=== PATIENT | female | born 1985 | race Caucasian/White ===

== ENCOUNTER 2018-11-11 13:41 | Emergency (ER) | payer SELFPAY ==
[2018-11-11] MEDS ORDERED: Ketorolac 60 MG/2 ML SDV IM ONE (13:57)
--- NOTE | 2018-11-11 13:57 | EDM.PDOC ---
ED HPI GENERAL MEDICAL PROBLEM - General Chief Complaint: Lower Extremity Injury/Pain Stated Complaint: HURT Rt Hip Time Seen by Provider: 11/11/18 13:44 Source of Information: Reports: Patient History Limitations: Reports: No Limitations - History of Present Illness INITIAL COMMENTS - FREE TEXT/NARRATIVE: HISTORY AND PHYSICAL: History of present illness: Patient is a 33-year-old female presents to the ED today with concern of right hip pain that occurred just prior to arrival to the ED. Patient states she was walking when she felt a click in her right hip and since then has had 10 out of 10 pain. Patient denies any falls or direct injury to the hip. Patient states the pain is worse when she tries to lift the leg up but does not hurt if she tries to move the legs side to side. Patient denies any prior injury to the hip. Patient states she has a history of hysterectomy. Patient denies fever, chills, chest pain, shortness of breath, or cough. Denies headache, neck stiff ness, change in vision, syncope, or near syncope. Denies nausea, vomiting, abdominal pain, diarrhea, constipation, or dysuria. Has not noted any blood in urine or stool. Patient has been eating and drinking appropriately. Review of systems: As per history of present illness and below otherwise all systems reviewed and negative. Past medical history: As per history of present illness and as reviewed below otherwise noncontributory. Surgical history: As per history of present illness and as reviewed below otherwise noncontributory. Social history: See social history for further information Family history: As per history of present illness and as reviewed below otherwise noncontributory. Physical exam: General: Patient is alert, oriented, and in no acute distress. Patient laying comfortably on exam table. HEENT: Atraumatic, normocephalic, pupils equal and reactive bilaterally, negative for conjunctival pallor or scleral icterus, mucous membranes moist, TMs normal bilaterally, throat clear, neck supple, nontender, trachea midline. No drooling or trismus noted. No meningeal signs. No hot potato voice noted. Lungs: Clear to auscultation, breath sounds equal bilaterally, chest nontender. Heart: S1S2, regular rate and rhythm without overt murmur Abdomen: Soft, nondistended, nontender. Negative for masses or hepatosplenomegaly. Negative for costovertebral tenderness. Pelvis: Stable nontender. Genitourinary: Deferred. Rectal: Deferred. Skin: Intact, warm, dry. No lesions or rashes noted. Extremities: Atraumatic, negative for cords or calf pain. Neurovascular unremarkable. No obvious deformity of bilateral lower extremities. Patient has full range of motion of right digits, ankle, and knee without pain or difficulty. Patient does have limited range of motion of the right hip due to pain. Patient does have point tenderness over the greater trochanter. No erythema or edema of the right hip. Dorsalis pedis and posterior tibial pulses are grossly intact of the right lower chin with capillary refill less than 2 seconds. Neuro: Awake, alert, oriented. Cranial nerves II through XII unremarkable. Cerebellum unremarkable. Motor and sensory unremarkable throughout. Exam nonfocal. Notes: Discussed the importance for follow-up with an orthopedic provider. Voices understanding and is agreeable to plan of care. Denies any further questions or concerns at this time. Diagnostics: Hip with pelvic XR, UA Therapeutics: Toradol, Norflex Prescription: Diclofenac, Flexeril Impression: Right hip pain Plan: 1. Rest, ice, elevate the affected extremity. You can apply ice 15 minutes on, 15 minutes off. 2. Tylenol as directed for pain management or discomfort. Take medication as prescribed. 3. Follow up with the Orthopedic provider or primary care provider as discussed. Return to the ED as needed and as discussed. Definitive disposition and diagnosis as appropriate pending reevaluation and review of above. right inguinal area Pain Score (Numeric/FACES): 8 - Related Data Allergies Allergy/AdvReac Type Severity Reaction Status Date / Time amoxicillin Allergy Rash Verified 11/11/18 14:10 hydromorphone [From Dilaudid] Allergy Nausea and Verified 11/11/18 14:10 Vomiting Home Meds: Home Meds B12/Levomefolate Calcium/B-6 [Folbic Rf Tablet] 11/11/18 [History] Cyclobenzaprine [Flexeril] 10 mg PO TID PRN #9 tab 11/11/18 [Rx] Diclofenac Sodium [Voltaren] 75 mg PO BIDMEALS PRN #15 tab.cr 11/11/18 [Rx] Multivitamin [Multi-Vitamin Daily] 11/11/18 [History] Review of Systems - Review of Systems Review Of Systems: ROS reveals no pertinent complaints other than HPI. ED EXAM, GENERAL - Physical Exam Exam: See Below (See dictation) Course - Vital Signs Last Recorded V/S: Last Vital Signs Temp 97.7 F 11/11/18 14:10 Pulse 52 L 11/11/18 15:00 Resp 20 11/11/18 15:00 BP 122/69 11/11/18 15:00 Pulse Ox 98 11/11/18 15:00 - Orders/Labs/Meds Labs: Laboratory Tests 11/11/18 Range/Units 15:15 Urine Color YELLOW Urine Appearance CLEAR Urine pH 7.0 (5.0-8.0) Ur Specific [place] 1.010 (1.001-1.035) Urine Protein NEGATIVE (NEGATIVE) mg/dL Urine Glucose (UA) NEGATIVE (NEGATIVE) mg/dL Urine Ketones NEGATIVE (NEGATIVE) mg/dL Urine Occult Blood NEGATIVE (NEGATIVE) Urine Nitrite NEGATIVE (NEGATIVE) Urine Bilirubin NEGATIVE (NEGATIVE) Urine Urobilinogen 0.2 (<2.0) EU/dL Ur Leukocyte Esterase NEGATIVE (NEGATIVE) Meds: Medications Discontinued Medications Generic Name Dose Route Start Last Admin Trade Name Freq PRN Reason Stop Dose Admin Ketorolac Tromethamine 60 mg 11/11/18 13:57 11/11/18 14:24 Toradol IM 11/11/18 13:58 60 mg ONETIME ONE Administration Orphenadrine Citrate 60 mg 11/11/18 13:57 11/11/18 14:25 Norflex IM 11/11/18 13:58 60 mg NOW STA Administration Departure - Departure Time of Disposition: 15:23 Disposition: Home, Self-Care 01 Clinical Impression: Right hip pain - Discharge Information Prescriptions: Cyclobenzaprine [Flexeril] 10 mg PO TID PRN #9 tab PRN Reason: Pain Diclofenac Sodium [Voltaren] 75 mg PO BIDMEALS PRN #15 tab.cr PRN Reason: Pain Forms: ED Department Discharge Additional Instructions: The following information is given to patients seen in the emergency department who are being discharged to home. This information is to outline your options for follow-up care. We provide all patients seen in our emergency department with a follow-up referral. The need for follow-up, as well as the timing and circumstances, are variable depending upon the specifics of your emergency department visit. If you don't have a primary care physician on staff, we will provide you with a referral. We always advise you to contact your personal physician following an emergency department visit to inform them of the circumstance of the visit and for follow-up with them and/or the need for any referrals to a consulting specialist. The emergency department will also refer you to a specialist when appropriate. This referral assures that you have the opportunity for follow-up care with a specialist. All of these measure are taken in an effort to provide you with optimal care, which includes your follow-up. Under all circumstances we always encourage you to contact your private physician who remains a resource for coordinating your care. When calling for follow-up care, please make the office aware that this follow-up is from your recent emergency room visit. If for any reason you are refused follow-up, please contact the [facility] Emergency Department at and asked to speak to the emergency department charge nurse. [facility] [address] [place] [id number] [address] [facility] Professional Building [address] [place] [address], [address] [place] [address] Dr Resendiz, Orthopedist [address] [place] [address] Dr Sanders - Dr Segovia - Dr Lassiter [facility] [address] [place] [address] [facility] [address] [place] [address] 1. Rest, ice, elevate the affected extremity. You can apply ice 15 minutes on, 15 minutes off. 2. Tylenol as directed for pain management or discomfort. Take medication as prescribed. 3. Follow up with the Orthopedic provider or primary care provider as discussed. Return to the ED as needed and as discussed.
--- NOTE | 2018-11-11 14:56 | CR ---
Pelvis and right hip: AP view of the pelvis was obtained as well as AP and frog- leg lateral views of the right hip. Comparison: No previous pelvis or hip exam. Joint spaces within both hips are preserved. Sacroiliac joints are normal. No fracture or other bony abnormality is seen. Impression: No abnormality is seen on AP pelvis or on two-view right hip exam. Diagnostic code #1 MTDD
== END 2018-11-11 15:40 | disposition home or self-care (01) ==
LOC: MW.ED 13:41
DX: M25.551 Pain in right hip (principal); Z88.0 Allergy status to penicillin; Z88.5 Allergy status to narcotic agent; X50.9XXA Other and unspecified overexertion or strenuous movements or postures, initial encounter; Y93.01 Activity, walking, marching and hiking
CPT/HCPCS: 73502; 81003; 96372; 99283; J1885; J2360

== ENCOUNTER 2019-09-10 17:14 | Emergency (ER) | payer BC, OTHER ==
[2019-09-10] MEDS ORDERED: Sodium Chloride 0.9% 1,000 ML IV ONE (17:40)
[2019-09-10] MEDS ORDERED: Ketorolac 30 MG/ML SDV IVPUSH ONE (17:40)
[2019-09-10] MEDS ORDERED: Dexamethasone 4 MG Tab PO ONE (17:43)
--- NOTE | 2019-09-10 17:43 | EDM.PDOC ---
ED HPI GENERAL MEDICAL PROBLEM - General Chief Complaint: Respiratory Problem Stated Complaint: TROUBLE BREATHING, DIARRHEA Time Seen by Provider: 09/10/19 17:31 Source of Information: Reports: Patient History Limitations: Reports: No Limitations - History of Present Illness INITIAL COMMENTS - FREE TEXT/NARRATIVE: HISTORY AND PHYSICAL: History of present illness: Patient is a 35-year-old female who presents to the emergency room with complaints of shortness of breath, body aches, fever (TMAX 100F) and generally feeling unwell. She states approximately 3 days ago she started to have fever, generalized body aches and feeling unwell. She did report to our respiratory clinic 2 days ago, they did a COVID screening on her. Results are pending. Today she started to have increased shortness of breath, left sided chest pain, n/v/d and worsening body aches. She states her fianc who lives with her also has milder symptoms. Patient denies any change in vision, syncope or near syncope. Denies any constipation or dysuria. Has not noted any blood in urine or stool. Denies any chance of , total hysterectomy. Patient has been eating and drinking less than usual, decreased appetite. Review of systems: As per history of present illness and below otherwise all systems reviewed and negative. Past medical history: As per history of present illness and as reviewed below otherwise noncontributory. Surgical history: As per history of present illness and as reviewed below otherwise noncontributory. Social history: See social history for further information Family history: As per history of present illness and as reviewed below otherwise noncontributory. Physical exam: General: Well-developed and well-nourished 34-year-old female. Alert and oriented. Nontoxic-appearing and in no acute distress. HEENT: Atraumatic, normocephalic, pupils equal and reactive bilaterally, negative for conjunctival pallor or scleral icterus, mucous membranes moist, TMs normal bilaterally, throat clear, neck supple, nontender, trachea midline. No drooling or trismus noted. No meningeal signs. No hot potato voice noted. Lungs: Clear to auscultation, breath sounds equal bilaterally, chest nontender. Heart: S1S2, regular rate and rhythm without overt murmur Abdomen: Soft, nondistended, nontender. Negative for masses or hepatosplenomegaly. Negative for costovertebral tenderness. Pelvis: Stable nontender. Skin: Intact, warm, dry. No lesions or rashes noted. Extremities: Atraumatic, moves all extremities per self without difficulty or deficits, negative for cords or calf pain. Neurovascular unremarkable. Neuro: Awake, alert, oriented. Cranial nerves II through XII unremarkable. Cerebellum unremarkable. Motor and sensory unremarkable throughout. Exam nonfocal. Notes: Oxygen saturation on room air is 98 to 100%. Patient symptoms we did have high suspicion of COVID-19. Will re-swab her today as she has not received the results from the respiratory clinic. All diagnostics are unremarkable. Negative COVID-19 screening. States her pain has somewhat improved but not completely gone. We will give her a breathing treatment and pro-air inhaler with spacer for supportive care. We discussed signs and symptoms that would prompt them to return to the emergency room. Medication, follow-up and supportive care measures were reviewed and discussed. Voices understanding and is agreeable to plan of care. Denies any further questions or concerns at this time. Diagnostics: CBC, CMP, Troponin, EKG, CXR, COVID, Ddimer Therapeutics: Dexamethasone, Zofran, Toradol, Pro-Air Inhaler w/ spacer Prescription: Zofran Medrol Dosepak Impression: Gastroenteritis Viral upper respiratory illness Plan: 1. Your COVID-19 screening was NEGATIVE. All your lab work was within normal limits. I do want you to continue to monitor your symptoms and if your symptoms should worsen, new symptoms develop or any of the signs and symptoms we discussed should arise please return to the emergency room or call 911 (if needed). 2. Encourage plenty of fluids to prevent dehydration, frequent sips. Take the Zofran as needed for nausea. 3. Supportive care measures at home such as Tylenol, ibuprofen, NyQuil and/or cough and cold medications are appropriate. 4. Please follow-up with your primary care provider as we discussed. Definitive disposition and diagnosis as appropriate pending reevaluation and review of above. L-side of the chest/abdomen/generalized bodyaches Pain Score (Numeric/FACES): 7 - Related Data Allergies Allergy/AdvReac Type Severity Reaction Status Date / Time amoxicillin Allergy Rash Verified 11/11/18 14:10 hydromorphone [From Dilaudid] Allergy Nausea and Verified 11/11/18 14:10 Vomiting morphine Allergy Itching Verified 09/10/19 17:33 Home Meds: Home Meds Ondansetron [Zofran ODT] 4 mg PO Q6H PRN #8 tab.dis 09/10/19 [Rx] methylPREDNISolone [Medrol] 1 dose PO DAILY 6 Days #1 dospk 09/10/19 [Rx] Past Medical History - Past Health History Medical/Surgical History: Denies Medical/Surgical History Gastrointestinal History: Reports: None Genitourinary History: Reports: None USED [employer] History: Reports: Psychiatric History: Reports: Depression, Other (See Below) Other Psychiatric History: post depression Hematologic History: Reports: Anemia - Past Surgical History GI Surgical History: Reports: Bariatric Procedure Female Surgical History: Reports: Section, Hysterectomy Social & Family History - Family History Family Medical History: Noncontributory - Tobacco Use Smoking Status *Q: Never Smoker Second Hand Smoke Exposure: No - Caffeine Use Caffeine Use: Reports: Soda - Recreational Drug Use Recreational Drug Use: No ED ROS GENERAL - Review of Systems Review Of Systems: Comprehensive ROS is negative, except as noted in HPI. ED EXAM, GENERAL - Physical Exam Exam: See Below (See dictation) Course - Vital Signs Last Recorded V/S: Last Vital Signs Temp 97.5 F 09/10/19 17:17 Pulse 80 09/10/19 17:52 Resp 20 09/10/19 17:17 BP 126/73 09/10/19 17:52 Pulse Ox 96 09/10/19 17:52 - Orders/Labs/Meds Orders: Active Orders 24 hr Category Date Time Status Communication Order [RC] STAT Care 09/10/19 19:12 Active EKG Documentation Completion [RC] STAT Care 09/10/19 17:50 Active RT Aerosol Therapy [RC] ASDIRECTED Care 09/10/19 18:59 Active RT Post Treatment Assessment [RC] Click to Edit Care 09/10/19 18:59 Active RT Pre-Treatment Assessment [RC] Click to Edit Care 09/10/19 18:59 Active UA RFX NA AND CULT IF INDIC [URIN] Stat Lab 09/10/19 17:40 Ordered Isolation [COMM] Stat Oth 09/10/19 17:17 Active Labs: Laboratory Tests 09/10/19 09/10/19 09/10/19 Range/Units 18:05 18:05 18:05 WBC 6.75 (4.0-11.0) K/uL RBC 3.86 L (4.30-5.90) M/uL Hgb 12.2 (12.0-16.0) g/dL Hct 36.7 (36.0-46.0) % MCV 95.1 (80.0-98.0) fL MCH 31.6 (27.0-32.0) pg MCHC 33.2 (31.0-37.0) g/dL RDW Std Deviation 43.6 (28.0-62.0) fl RDW Coeff of [place]aj[place] 13 (11.0-15.0) % Plt Count 224 (150-400) K/uL MPV 10.00 (7.40-12.00) fL Neut % (Auto) 63.0 (48.0-80.0) % Lymph % (Auto) 27.0 (16.0-40.0) % [place] % (Auto) 9.3 (0.0-15.0) % Eos % (Auto) 0.4 (0.0-7.0) % Baso % (Auto) 0.3 (0.0-1.5) % Neut # (Auto) 4.3 (1.4-5.7) K/uL Lymph # (Auto) 1.8 (0.6-2.4) K/uL [place] # (Auto) 0.6 (0.0-0.8) K/uL Eos # (Auto) 0.0 (0.0-0.7) K/uL Baso # (Auto) 0.0 (0.0-0.1) K/uL Nucleated RBC % 0.0 /100WBC Nucleated RBCs # 0 K/uL D-Dimer, Quantitative 0.34 (0.0-0.50) mg/L FEU Sodium 140 (136-145) mmol/L Potassium 3.5 (3.5-5.1) mmol/L Chloride 107 (98-107) mmol/L Carbon Dioxide 22.9 (21.0-32.0) mmol/L BUN 14 (7.0-18.0) mg/dL Creatinine 1.0 (0.6-1.0) mg/dL Est Cr Clr Drug Dosing 77.08 mL/min Estimated GFR (MDRD) > 60.0 ml/min Glucose 96 (74-106) mg/dL Calcium 8.3 L (8.5-10.1) mg/dL Total Bilirubin 0.3 (0.2-1.0) mg/dL AST 19 (15-37) IU/L ALT 25 (14-63) IU/L Alkaline Phosphatase 66 (46-116) U/L Troponin I (0.000-0.056) ng/mL Total Protein 7.5 (6.4-8.2) g/dL Albumin 3.8 (3.4-5.0) g/dL Globulin 3.7 (2.6-4.0) g/dL Albumin/Globulin Ratio 1.0 (0.9-1.6) COVID-19 (VALENTE) (NEGATIVE) 09/10/19 09/10/19 Range/Units 18:05 18:23 WBC (4.0-11.0) K/uL RBC (4.30-5.90) M/uL Hgb (12.0-16.0) g/dL Hct (36.0-46.0) % MCV (80.0-98.0) fL MCH (27.0-32.0) pg MCHC (31.0-37.0) g/dL RDW Std Deviation (28.0-62.0) fl RDW Coeff of Kajal (11.0-15.0) % Plt Count (150-400) K/uL MPV (7.40-12.00) fL Neut % (Auto) (48.0-80.0) % Lymph % (Auto) (16.0-40.0) % [place] % (Auto) (0.0-15.0) % Eos % (Auto) (0.0-7.0) % Baso % (Auto) (0.0-1.5) % Neut # (Auto) (1.4-5.7) K/uL Lymph # (Auto) (0.6-2.4) K/uL [place] # (Auto) (0.0-0.8) K/uL Eos # (Auto) (0.0-0.7) K/uL Baso # (Auto) (0.0-0.1) K/uL Nucleated RBC % /100WBC Nucleated RBCs # K/uL D-Dimer, Quantitative (0.0-0.50) mg/L FEU Sodium (136-145) mmol/L Potassium (3.5-5.1) mmol/L Chloride (98-107) mmol/L Carbon Dioxide (21.0-32.0) mmol/L BUN (7.0-18.0) mg/dL Creatinine (0.6-1.0) mg/dL Est Cr Clr Drug Dosing mL/min Estimated GFR (MDRD) ml/min Glucose (74-106) mg/dL Calcium (8.5-10.1) mg/dL Total Bilirubin (0.2-1.0) mg/dL AST (15-37) IU/L ALT (14-63) IU/L Alkaline Phosphatase (46-116) U/L Troponin I < 0.050 (0.000-0.056) ng/mL Total Protein (6.4-8.2) g/dL Albumin (3.4-5.0) g/dL Globulin (2.6-4.0) g/dL Albumin/Globulin Ratio (0.9-1.6) COVID-19 (VALENTE) NEGATIVE (NEGATIVE) Meds: Medications Discontinued Medications Generic Name Dose Route Start Last Admin Trade Name Freq PRN Reason Stop Dose Admin Albuterol 1 gm 09/10/19 18:59 Ventolin Hfa INH 09/10/19 19:00 ONETIME ONE Albuterol/Ipratropium 3 ml 09/10/19 18:58 09/10/19 19:08 Duoneb 3.0-0.5 Mg/3 Ml NEB 09/10/19 18:59 3 ml ONETIME ONE Administration Dexamethasone 4 mg 09/10/19 17:43 09/10/19 18:09 Dexamethasone PO 09/10/19 17:44 4 mg ONETIME ONE Administration Sodium Chloride 1,000 mls @ 999 mls/hr 09/10/19 17:40 09/10/19 18:07 Normal Saline IV 09/10/19 18:40 999 mls/hr STAT ONE Administration Ketorolac Tromethamine 30 mg 09/10/19 17:40 09/10/19 18:09 Toradol IVPUSH 09/10/19 17:41 30 mg ONETIME ONE Administration Ondansetron HCl 4 mg 09/10/19 17:44 09/10/19 18:14 Zofran IVPUSH 09/10/19 17:45 4 mg ONETIME ONE Administration Departure - Departure Time of Disposition: 19:16 Disposition: Home, Self-Care 01 Clinical Impression: Gastroenteritis, Viral upper respiratory illness - Discharge Information Prescriptions: methylPREDNISolone [Medrol] 1 dose PO DAILY 6 Days #1 dospk Ondansetron [Zofran ODT] 4 mg PO Q6H PRN #8 tab.dis PRN Reason: Nausea Instructions: Viral Gastroenteritis, Adult, [id number], Viral Respiratory Infection, [id number] Forms: ED Department Discharge Additional Instructions: The following information is given to patients seen in the emergency department who are being discharged to home. This information is to outline your options for follow-up care. We provide all patients seen in our emergency department with a follow-up referral. The need for follow-up, as well as the timing and circumstances, are variable depending upon the specifics of your emergency department visit. If you don't have a primary care physician on staff, we will provide you with a referral. We always advise you to contact your personal physician following an emergency department visit to inform them of the circumstance of the visit and for follow-up with them and/or the need for any referrals to a consulting specialist. The emergency department will also refer you to a specialist when appropriate. This referral assures that you have the opportunity for follow-up care with a specialist. All of these measure are taken in an effort to provide you with optimal care, which includes your follow-up. Under all circumstances we always encourage you to contact your private physician who remains a resource for coordinating your care. When calling for follow-up care, please make the office aware that this follow-up is from your recent emergency room visit. If for any reason you are refused follow-up, please contact the [facility] Emergency Department at and asked to speak to the emergency department charge nurse. [facility] [address] [place] [address] [id number] [address] [address] Thank you for choosing the [facility] emergency department in [place] for your medical needs today. It was a pleasure caring for you. You were seen in the emergency department for multiple symptoms concerning for COVID-19. 1. Your COVID-19 screening was NEGATIVE. All your lab work was within normal limits. Your oxygen saturation and vital signs are within normal limits. I do want you to continue to monitor your symptoms and if your symptoms should worsen, new symptoms develop or any of the signs and symptoms we discussed should arise please return to the emergency room or call 911 (if needed). 2. Encourage plenty of fluids to prevent dehydration, frequent sips. Take the Zofran as needed for nausea. 3. Supportive care measures at home such as Tylenol, ibuprofen, NyQuil and/or cough and cold medications are appropriate. 4. Please follow-up with your primary care provider as we discussed. Sepsis Event Note (ED) - Evaluation Sepsis Screening Result: No Definite Risk - Focused Exam Vital Signs: Vital Signs Temp Pulse Resp BP Pulse Ox 09/10/19 17:52 80 126/73 96 09/10/19 17:37 84 123/75 98 09/10/19 17:17 97.5 F 80 20 143/71 H 97 - My Orders Last 24 Hours: My Active Orders 09/10/19 17:40 UA RFX NA AND CULT IF INDIC [URIN] Stat 09/10/19 17:50 EKG Documentation Completion [RC] STAT 09/10/19 18:59 RT Aerosol Therapy [RC] ASDIRECTED RT Post Treatment Assessment [RC] Click to Edit RT Pre-Treatment Assessment [RC] Click to Edit 09/10/19 19:12 Communication Order [RC] STAT - Assessment/Plan Last 24 Hours: My Active Orders 09/10/19 17:40 UA RFX NA AND CULT IF INDIC [URIN] Stat 09/10/19 17:50 EKG Documentation Completion [RC] STAT 09/10/19 18:59 RT Aerosol Therapy [RC] ASDIRECTED RT Post Treatment Assessment [RC] Click to Edit RT Pre-Treatment Assessment [RC] Click to Edit 09/10/19 19:12 Communication Order [RC] STAT
[2019-09-10] MEDS ORDERED: Ondansetron 4 MG/2 ML SDV IVPUSH ONE (17:44)
--- NOTE | 2019-09-10 18:36 | CR ---
Chest: Portable view of the chest was obtained. Comparison: Prior chest x-ray of 05/06/19. Heart size and mediastinum are normal. Lungs are clear with no acute parenchymal change. Bony structures are grossly intact. Impression: 1. Nothing acute is seen on portable chest x-ray. Diagnostic code #1 Dictated in [place] daylight time
[2019-09-10 18:40] LABS: BLOOD UREA NITROGEN,BUN 14 mg/dL (7.0-18.0); CARBON DIOXIDE,CO2 22.9 mmol/L (21.0-32.0); CHLORIDE,CL 107 mmol/L (98-107); GLUCOSE RANDOM 96 mg/dL (74-106); POTASSIUM,K 3.5 mmol/L (3.5-5.1); SODIUM,NA 140 mmol/L (136-145)
[2019-09-10] MEDS ORDERED: Albuterol/Ipratropium 3.0-0.5 MG/3 ML Neb Soln NEB ONE (18:58)
[2019-09-10] MEDS ORDERED: Albuterol 8 GM Inhaler INH ONE (18:59)
[2019-09-10] MEDS ORDERED: Albuterol HFA 18 Gm Inhaler ONE (19:36)
[2019-09-10] MEDS ORDERED: Albuterol 6.7 GM Inhaler INH ONE (19:37)
== END 2019-09-10 19:53 | disposition home or self-care (01) ==
LOC: MW.ED 17:14
DX: J98.8 Other specified respiratory disorders (principal); K52.9 Noninfective gastroenteritis and colitis, unspecified; B97.89 Other viral agents as the cause of diseases classified elsewhere; Z20.828 Contact with and (suspected) exposure to other viral communicable diseases; Z88.1 Allergy status to other antibiotic agents; Z88.5 Allergy status to narcotic agent
CPT/HCPCS: 36415; 71045; 80053; 84484; 85025; 85379; 87635; 93005; 94640; 96361; 96374; 96375; 99285; J1885; J2405; J7030; J8540; J3535-GY; J7620-GY; U0002